=== PATIENT | male | born 1975 | race Two or more races ===

== ENCOUNTER 2018-08-21 21:40 | Emergency (ER) | payer OTHER ==
[~2018-08-21] VITALS: Ht 170.2 cm; Wt 77.1 kg
[2018-08-21 22:24] VITALS: BP 145/86
[2018-08-22] MEDS ORDERED: ALBUTEROL SULF 2.5 MG/0.5ML(0.5%) NEB SOLN NEB ONE (01:15)
[2018-08-22] MEDS ORDERED: IPRATROPIUM BROM 0.5 MG/2.5ML INH SOL NEB ONE (01:15)
[2018-08-22] MEDS ORDERED: KETOROLAC TROMETH 60MG/2ML VIAL IM ONE (01:45)
[2018-08-22] MEDS ORDERED: cefTRIAXone SOD 1,000 MG VL IM ONE (01:45)
[2018-08-22] MEDS ORDERED: methylPREDNISolone SOD SUCC 125 MG/2 ML VL IM ONE (01:45)
== END 2018-08-22 01:49 | disposition home or self-care (01) ==
LOC: ER 21:40
DX: J40 Bronchitis, not specified as acute or chronic (principal); J03.90 Acute tonsillitis, unspecified
CPT/HCPCS: 96372; 99284; J0696; J1885; J2930; J7611; J7644